=== PATIENT | female | born 1940 | race Hispanic/Latino ===

== ENCOUNTER 2017-07-25 15:57 | Emergency (ER) | payer OTHER, MEDICARE ==
[~2017-07-25] VITALS: Ht 157.5 cm; Wt 75.7 kg
[~2017-07-25 15:57] MED LIST: ASPIRIN325 MG PO; ATORVASTATIN CA20 MG PO; HYDROXYCHLOROQ200 MG PO; LISINOPRIL10 MG PO; PREDNISONE5 MG PO
== END 2017-07-25 19:45 | disposition short-term general hospital (02) ==
LOC: ER 15:57
DX: M54.9 Dorsalgia, unspecified (principal)

== ENCOUNTER 2018-04-12 15:18 | Emergency (ER) | payer MEDICARE, OTHER ==
[~2018-04-12] VITALS: Ht 157.5 cm; Wt 75.7 kg
--- NOTE | 2018-04-12 16:15 | Diagnostic Imaging Report ---
Exam: Lumbar spine AP lateral History: Neck pain Comparison: None. Findings: Bone demineralization. Hemangioma L2. Multilevel degenerative disc disease most prominent L5-S1. 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 Impression: No acute osseous abnormality Lumbar spondyloarthropathy most advanced L5-S1 Signed by: Dr. Kurtis Solorzano M.D. on 04/12/2018 4:12 PM
[2018-04-12 16:29] LABS: BILIRUBIN,URINE NEGATIVE (NEGATIVE); CLARITY,URINE SL CLOUDY (CLEAR); COLOR,URINE YELLOW (YELLOW); KETONES,URINE NEGATIVE (NEGATIVE); LEUKOCYTE ESTERASE ,URINE TRACE (NEGATIVE); NITRITE,URINE NEGATIVE (NEGATIVE); PROTEIN,URINE DIPSTICK NEGATIVE (NEGATIVE); URINE UROBILINOGEN 0.2 mg/dL (0.2 - 1)
[2018-04-12 16:47] LABS: BACTERIA,URINE MODERATE /HPF; EPITHELIAL CELLS,URINE FEW /LPF; WBC,URINE (MAN) 0-5 /HPF (0-5)
[2018-04-12 17:41] VITALS: BP 180/93
== END 2018-04-12 17:49 | disposition home or self-care (01) ==
LOC: ER 15:18
DX: M54.5 Low back pain (principal); S33.5XXA Sprain of ligaments of lumbar spine, initial encounter; W01.0XXA Fall on same level from slipping, tripping and stumbling without subsequent striking against object, initial encounter; N39.0 Urinary tract infection, site not specified; I10 Essential (primary) hypertension; E78.00 Pure hypercholesterolemia, unspecified
CPT/HCPCS: 72100; 81001; 99283